=== PATIENT | female | born 1950 | race Caucasian/White ===

== ENCOUNTER → 2018-04-29 | Outpatient (CLI) | payer MEDICARE ==
[~2018-04-29] MED LIST: ASPI-715 PO; ATOR20TA22 PO; BUPR-127 PO; GABA-490 PO; HYDR-385 PO; HYDR-4309 PO; INUL2TAB7 PO; LISI-362 PO; LOR1 PO; LOVA10TA63 PO; MELO-207 PO; SERT20OR6 PO; VENL37.594 PO
--- NOTE | 2018-04-29 13:35 | RADIOLOGY IMAGING REPORT ---
FACILITY: [facility] PATIENT NAME: Eunice Gilbert : 1950 MR: [id number] V: [id number] EXAM DATE: ORDERING PHYSICIAN: GABE OATES TECHNOLOGIST: Location: [facility] Patient: Eunice Gilbert : 1950 Visit/Account:[id number] Date of Sevice: 04/29/2018 DEXA Scan Clinical history: Postmenopausal state. Comparison: 07/28/2012. HIP: Bone mineral density (BMD) measured in the Left total hip region correlates with a Z-score -0.1 and a T-score of -1.3 which is osteopenia as defined by the World Health Organization. The correspondin g risk of fracture in the hip is 2-3 times increased compared with a young adult reference population .. There is been a 6.1% decrease in bone mineral density when compared to the prior study Bone mineral density (BMD) measured in the Femoral Neck region measures 0.990 g/cm2. FOREARM: The bone mineral density (BMD) measured in the ULTRADISTAL right forearm, where trabecular bone predo minates, correlates with a Z-score -1.7 and a T-score of -3.2 which is osteoporosis as defined by the World Health Organization. The corresponding risk of fracture in the distal forearm is 8-12 times i ncreased compared with a young adult reference population. The bone mineral density (BMD) in the MIDSHAFT of the forearm, where cortical bone predominates, laya elates with a Z-score -1.2 and a T-score of -2.6 which is osteoporosis as defined by the World Health Organization. The corresponding risk of fracture in the midshaft of the forearm is 6-8 times increas ed compared with a young adult reference population. IMPRESSION: 1. Left Hip: Osteopenia. 2. Femoral Neck: Bone Mineral Density is 0.990 g/cm2 3. Right Forearm: Osteoporosis. The next DEXA scan of this patient should include the following sites: Left hip and the right forearm . FRAX? WHO Fracture Risk Assessment Tool link: <http://www.shef.ac.uk/FRAX/tool.jsp?locationValue=9> PLEASE NOTE: 1) The World Health Organization defines low BMD as follows: T-score Normal > -1 Osteopenia < -1 and > -2.5 Osteoporosis < -2.5 without fractures Established osteoporosis < -2.5 with fractures 2) In general, you may wish to consider: Diagnosis Treatment Follow-up DEXA Normal BMD Prevention 2-3 years Osteopenia Prevention/therapy 1-2 years Osteoporosis Therapy Yearly 3) Fracture risk estimated from the T-score is more accurate for vertebral fractures (often spontane ous) than for hip fractures. Report Dictated By: Xochitl Blankenship MD at 04/29/2018 1:23 PM Report E-Signed By: Xochitl Blankenship MD at 04/29/2018 1:31 PM WSN:[email or web address]
--- NOTE | 2018-04-30 08:35 | RADIOLOGY IMAGING REPORT ---
FACILITY: [facility] [place] PATIENT NAME: ALVINA JEREZ : [id number] MR: [id number] V: [id number] EXAM DATE: ORDERING PHYSICIAN: GABE OATES TECHNOLOGIST: Micaela Victoria PROCEDURE:BILATERAL DIGITAL SCREENING MAMMOGRAM WITH CAD ASSISTED INTERPRETATION & 3D TOMOSYNTHESIS COMPARISON:Prior mammograms 12/01/14, 07/28/12. INDICATIONS:SCREENING FINDINGS: A small to moderate amount of fibroglandular tissue is seen throughout the breasts. The parenchymal pattern has remained stable allowing for difference in mammographic technique & patient positioning. There is no evidence of malignant appearing mass, malignant appearing calcifications or other secondary sign of malignancy in either breast. DIAGNOSTIC CATEGORY 1--NEGATIVE. RECOMMENDATIONS: ROUTINE MAMMOGRAM AND CLINICAL EVALUATION. IMPRESSION: BIRADS 1: Negative. No significant abnormality is seen. Dictated by: Xochitl Blankenship M.D. on 04/29/2018 at 16:15 Transcribed by: BASILIO on 04/30/2018 at 7:56 Approved by: Xochitl Blankenship M.D. on 04/30/2018 at 8:34 [facility]
== END ==
LOC: MAMO 01:14
PROVIDERS: ATTEND Nurse Practitioner Family
DX: Z13.820 Encounter for screening for osteoporosis (principal); Z12.31 Encounter for screening mammogram for malignant neoplasm of breast; M85.88 Other specified disorders of bone density and structure, other site; M81.0 Age-related osteoporosis without current pathological fracture; Z78.0 Asymptomatic menopausal state
CPT/HCPCS: 77063; 77067; 77080

== ENCOUNTER → 2018-08-05 | Outpatient (CLI) | payer MEDICARE ==
[~2018-08-05] MED LIST changes: +DENOSUMAB 60 MG/1 ML SYR SUBQ ONE
[2018-08-05 14:28] VITALS: BP 131/98
== END ==
LOC: SPU 10:22
PROVIDERS: ATTEND Nurse Practitioner Family
DX: M81.0 Age-related osteoporosis without current pathological fracture (principal)
CPT/HCPCS: 96372; J0897

== ENCOUNTER 2018-12-16 17:26 | Emergency (ER) | payer MEDICARE ==
[~2018-12-16 17:26] MED LIST changes: -DENOSUMAB 60 MG/1 ML SYR SUBQ ONE; -HYDR-4309 PO; +HYDR-653 PO
[2018-12-16 17:31] VITALS: BP 167/94
--- NOTE | 2018-12-16 18:04 | ER Report ---
History and Physical Time Seen By MD: 18:01 Hx. of Stated Complaint: FALL TODAY AT 0730 - RIGHT KNEE PAIN HPI/ROS CHIEF COMPLAINT: Right knee injury HISTORY OF PRESENT ILLNESS: 68-year-old female presents with right knee pain and swelling since 7:30 AM this morning she fell while walking and on a porch. She states she has advanced arthritis in her knee and there is decreased range of motion. She is status post total right hip replacement. She states her knee gave out and it bent when it normally doesn't bend. She complains of severe 9/10 throbbing pain. She took a Ward around noon with some relief. Patient denies any other injury. She did note some aching in her hips earlier but has resolved. Allergies: Coded Allergies: No Known Drug Allergies (Verified , 12/16/18) Home Meds Active Scripts Hydrocodone Bit/Acetaminophen (NORCO 5-325 TABLET) 1 Each Tablet, 1 EACH PO Q4H PRN for PAIN, #12 TAB Prov:CHRIS CORDERO DO 12/16/18 Hydrocodone Bit/Acetaminophen (NORCO 5-325 TABLET) 1 Each Tablet, 1 EACH PO Q4- 6H PRN for PAIN, #12 TAB Prov:SONIDO ACOSTA PA-C 05/22/17 Reported Medications Venlafaxine Hcl (EFFEXOR XR) 37.5 Mg Cap.er.24h, 37.5 MG PO QDAY 05/22/17 Meloxicam (MELOXICAM) 15 Mg Tablet, 15 MG PO QDAY 08/17/14 Lisinopril (LISINOPRIL) 10 Mg Tablet, 10 MG PO QDAY 08/17/14 Atorvastatin Calcium (LIPITOR) 20 Mg Tablet, 1 TAB PO QDAY, TAB TAKE ONE TABLET BY MOUTH ONCE A DAY AT BED TIME 08/17/14 Lorazepam (Ativan) 1 Mg Tab, 1 MG PO PRN, 0 Refills 01/17/10 Aspirin (Aspirin) 81 Mg Tablet.dr, 81 MG PO QDAY, 0 Refills 01/17/10 Discontinued Reported Medications Hydrocodone Bit/Acetaminophen (HYDROCODON-ACETAMINOPHEN 5-325) 1 Each Tablet, 1 EACH PO Q6H PRN for PRN 08/17/14 Past Medical/Surgical History Patient has a past medical history of high cholesterol, hypertension, pneumonia, hypercholesterolemia, arthritis, back pain, depression. Patient has a surgical history LASIK surgery, tonsillectomy, multiple orthopedic surgeries, hysterectomy, cholecystectomy. Patient denies tobacco use, drinks wine, denies recreational drug use Reviewed Nurses Notes: Yes Old Medical Records Reviewed: Yes Hx Smoking: No Hx Substance Use Disorder: No Hx Alcohol Use: Yes (COUPLE DAILY) Constitutional Vital Sign - Last 24 Hours 12/16/18 17:31 Temp 98.3 Pulse 83 Resp 20 B/P (MAP) 167/94 Pulse Ox 94 O2 Delivery Room Air Physical Exam General appearance: Alert no distress. Mild distress Respiratory: Chest is non tender, lungs are clear to auscultation. Cardiac: Regular rate and rhythm Extremities: Examination of the right lower extremity reveals no tenderness on palpation of the hip. The knee is grossly swollen with effusion and arthritis changes. There is significantly decreased range of motion. There is no tenderness on palpation of the vu, ankle or foot. All digits are neurovascularly intact. Treatment limited right knee. Range of motion. DIFFERENTIAL DIAGNOSIS: After history and physical exam differential diagnosis was considered for sprain, strain, fracture, dislocation, contusion Medical Decision Making EKG/Imaging Imaging X-ray: Right knee, 3 views was obtained. I viewed the images myself on the PACS system. My interpretation of the images is: No fracture no dislocation or malalignment. The radiologist interpretation had no clinically significant variation from this interpretation. ED Course/Re-evaluation ED Course Patient was admitted to an examination room. H&P was done. The differential diagnoses was considered. On clinical examination. Patient is a very tender, swollen right knee. Patient's able to bear weight on it but it's causes significant pain. She notes that she has arthritis. Diagnostic x-rays are performed. No obvious fractures were seen. There is advanced arthritis and COMPARTMENTS of the knee. There are numerous osteophytes. She'll be placed in knee immobilizer. She is also outfitted with crutches. She is advised to continue her meloxicam. She's given a limited supply of Ward for temporary pain relief. She is advised to follow-up with primary care if unimproved in 4-5 days. Patient was able to tolerate ligament rupture testing. Decision to Disposition Date: Dec 16, 2018 Decision to Disposition Time: 18:33 Depart Departure Latest Vital Signs Vital Signs Date Time Temp Pulse Resp B/P (MAP) Pulse Ox O2 Delivery O2 Flow Rate FiO2 12/16/18 17:31 98.3 83 20 167/94 94 Room Air Impression: Primary Impression: Knee sprain Additional Impression: Knee contusion Condition: Improved Disposition: HOME OR SELF-CARE Referrals: GABE OATESP (PCP) New Scripts Hydrocodone Bit/Acetaminophen (NORCO 5-325 TABLET) 1 Each Tablet 1 EACH PO Q4H PRN for PAIN, #12 TAB Prov: CHRIS CORDERO DO 12/16/18 Patient Instructions: Knee Sprain (ED) Additional Instructions: Continue your meloxicam for anti-inflammatory effect Take Ward as needed for pain relief Follow-up with primary care if unimproved in 4-5 days. You may benefit from referral to physical therapy or orthopedics if unimproved Problem Qualifiers Primary Impression: Knee sprain Encounter type: initial encounter Involved ligament of knee: unspecified ligament Laterality: right Qualified Codes: S83.91XA - Sprain of unspecified site of right knee, initial encounter Additional Impression: Knee contusion Encounter type: initial encounter Laterality: right Qualified Codes: S80.01XA - Contusion of right knee, initial encounter CHRIS CORDERO DO Dec 16, 2018 18:04
[2018-12-16] MEDS ORDERED: IBUPROFEN 600 MG TAB PO ONE (18:05)
[2018-12-16] MEDS ORDERED: APAP/HYDROCODONE 325/5 TAB PO ONE (18:05)
[2018-12-16] MEDS ORDERED: HYDR-653 PO (18:35)
--- NOTE | 2018-12-16 20:29 | RADIOLOGY IMAGING REPORT ---
FACILITY: [facility] PATIENT NAME: Eunice Gilbert : 1950 MR: [id number] V: [id number] EXAM DATE: ORDERING PHYSICIAN: CHRIS CORDERO TECHNOLOGIST: Location: [facility] [place] Patient: Eunice Gilbert : 1950 Visit/Account:[id number] Date of Sevice: 12/16/2018 KNEE 3 VIEW RIGHT Indication: Right knee pain. Comparison: None available. Findings: 3 views of the right knee. Diffuse osteopenia with no definite acute fracture. No dislocation. No radiopaque foreign body. Tricompartment osteoarthritis with mild medial joint space narrowing and moderate joint effusion. Impression: 1. Diffuse osteopenia with no definite acute fracture. 2. Tricompartment osteoarthritis with mild medial joint space narrowing and moderate joint effusion. Report Dictated By: Robert Neely MD at 12/16/2018 8:23 PM Report E-Signed By: Robert Neely MD at 12/16/2018 8:25 PM WSN:[email or web address]
== END 2018-12-16 19:00 | disposition home or self-care (01) ==
LOC: ER 18:00
DX: S83.91XA Sprain of unspecified site of right knee, initial encounter (principal); S80.01XA Contusion of right knee, initial encounter
CPT/HCPCS: 73562; 99283; A9270; L1830

== ENCOUNTER → 2019-02-10 | Outpatient (CLI) | payer MEDICARE ==
[~2019-02-10] MED LIST changes: +DENOSUMAB 60 MG/1 ML SYR SUBQ ONE
[2019-02-10 09:14] VITALS: BP 147/98
== END ==
LOC: SPU 08:25
PROVIDERS: ATTEND Nurse Practitioner Family
DX: M81.0 Age-related osteoporosis without current pathological fracture (principal)
CPT/HCPCS: 96372; J0897

== ENCOUNTER → 2019-03-02 | Outpatient (CLI) | payer MEDICARE ==
[~2019-03-02] MED LIST changes: -DENOSUMAB 60 MG/1 ML SYR SUBQ ONE
--- NOTE | 2019-03-02 12:03 | RADIOLOGY IMAGING REPORT ---
FAC[place] [facility] [place]IENT NAME: Eunice Gilbert : 1950 MR: [id number] V: [id number] EXAM DATE: ORDERING PHYSICIAN: GABE OATES TECHNOLOGIST: Location: [facility] [place] Patient: Eunice Gilbert : 1950 Visit/Account:[id number] Date of Sevice: 03/02/2019 EXAMINATION: Ultrasound renal HISTORY: Bladder infection, left flank pain, proteinuria. Rule out stones. COMPARISON: None. FINDINGS: Kidneys: Right kidney: 10.6 cm, normal parenchymal thickness and echogenicity. Left kidney: 10.1 cm, normal parenchymal thickness and echogenicity. Uniform and symmetric blood flow in each kidney by Doppler ultrasound. Resistive index is normal on the right at 0.68 and on the left at 0.65. Hydronephrosis: None. Bladder: Distended without focal abnormality. Neither ureteral jet visualized. Post void residual i s 5 mL. Abdominal aorta and IVC: Patent by Doppler ultrasound. IMPRESSION: 1. Normal sonographic appearance of the kidneys without hydronephrosis. No ultrasound evidence of s tones. 2. Minimal post void residual of 5 mL. Report Dictated By: Mireya Knox MD at 03/02/2019 11:57 AM Report E-Signed By: Mireya Knox MD at 03/02/2019 11:59 AM WSN:[email or web address]
== END ==
LOC: US 10:10
PROVIDERS: ATTEND Nurse Practitioner Family
DX: R10.9 Unspecified abdominal pain (principal); R39.15 Urgency of urination
CPT/HCPCS: 76705

== ENCOUNTER → 2019-04-30 | Outpatient (CLI) | payer MEDICARE ==
[2019-04-30 10:08] LABS: PLATELET COUNT, AUTOMATED 208 K/uL (150-450)
[2019-04-30 10:52] LABS: LDL CHOLESTEROL 82 mg/dl
--- NOTE | 2019-04-30 11:05 | RADIOLOGY IMAGING REPORT ---
FAC[place] [facility] [place]IENT NAME: Eunice Gilbert : 1950 MR: [id number] V: [id number] EXAM DATE: ORDERING PHYSICIAN: GABE OATES TECHNOLOGIST: Location: [facility] Patient: Eunice Gilbert : 1950 Visit/Account:[id number] Date of Sevice: 04/30/2019 Exam type: HIP LEFT AP History: Left hip pain Comparison: None. Findings: Two views submitted There is a right hip arthroplasty in place and postsurgical changes of the lower lumbar spine. There are mild to moderate degenerative changes of the left hip joint with joint space narrowing, marginal osteophytes and subchondral cystic changes in the left femoral head. Well-corticated bony density p rojects just medial to the intratrochanteric region of the left hip. There is no evidence of acute f racture or dislocation involving the left hip. A surgical clip projects in the left-sided the pelvis . There are multiple calcified occasions the pelvis likely representing phleboliths IMPRESSION: 1. Mild to moderate degenerative changes the left hip joint as described above Report Dictated By: Xochitl Blankenship MD at 04/30/2019 10:59 AM Report E-Signed By: Xochitl Blankenship MD at 04/30/2019 11:01 AM VERÓNICAN:KIRA
== END ==
LOC: LAB 09:11
PROVIDERS: ATTEND Nurse Practitioner Family
DX: R53.81 Other malaise (principal); E87.8 Other disorders of electrolyte and fluid balance, not elsewhere classified; E78.00 Pure hypercholesterolemia, unspecified; E55.9 Vitamin D deficiency, unspecified; E63.8 Other specified nutritional deficiencies; M25.552 Pain in left hip
CPT/HCPCS: 36415; 82040; 82247; 82306; 82310; 82374; 82435; 82465; 82565; 82607; 82947; 83718; 84075; 84132; 84155; 84295; 84443; 84450; 84460; 84478; 84520; 85025